=== PATIENT | female | born 1975 | race Caucasian/White ===

== ENCOUNTER → 2018-04-25 | Outpatient (CLI) | payer OTHER | END | disposition home or self-care (01) | LOC: PLD 08:12 → LAB SHORT 08:12 | DX: D22.39 Melanocytic nevi of other parts of face (principal) | CPT/HCPCS: 88305 ==

== ENCOUNTER → 2018-08-13 | Outpatient (CLI) | payer OTHER ==
[2018-08-15 15:09] LABS: HPV 16 Negative (Negative); HPV 18 Negative (Negative); HPV OTHER HR TYPES Negative (Negative)
== END | disposition home or self-care (01) ==
LOC: LAB SHORT 16:50 → LAB 16:50
PROVIDERS: Obstetrics & Gynecology
DX: Z01.419 Encounter for gynecological examination (general) (routine) without abnormal findings (principal)
CPT/HCPCS: 87624; G0123

== ENCOUNTER 2019-09-23 07:03 | Day surgery (SDC) | payer OTHER ==
--- NOTE | 2019-09-23 08:09 | NUR ---
0801- 5 MG IV METORPROLOL ADMINISTERED PER DR WILLIS.
--- NOTE | 2019-09-23 08:10 | NUR ---
PATIENT ON MONITOR FOR ADMINISTRATION, WITH GOOD RESULT HR 66.
--- NOTE | 2019-09-23 08:51 | NUR ---
WILL FAX A CANCELATION NOTFICATION TO JONNA JOHNSON'S OFFICE WITH EXPLANATION OF HR VARIANCE.
== END 2019-09-23 22:42 | disposition home or self-care (01) ==
LOC: ORD 07:03 → CT 07:03 → ORD 07:30 → CT 08:00 → ORD 22:42
DX: R07.9 Chest pain, unspecified (principal); R94.39 Abnormal result of other cardiovascular function study; I10 Essential (primary) hypertension; E11.9 Type 2 diabetes mellitus without complications; E78.5 Hyperlipidemia, unspecified; K21.9 Gastro-esophageal reflux disease without esophagitis; G47.33 Obstructive sleep apnea (adult) (pediatric); J45.909 Unspecified asthma, uncomplicated; F17.200 Nicotine dependence, unspecified, uncomplicated; E66.9 Obesity, unspecified; Z53.8 Procedure and treatment not carried out for other reasons; Z79.899 Other long term (current) drug therapy; Z79.4 Long term (current) use of insulin; Z68.41 Body mass index [BMI] 40.0-44.9, adult

== ENCOUNTER 2022-03-30 06:17 | Day surgery (SDC) | payer OTHER ==
[~2022-03-30] VITALS: Ht 160 cm; Wt 89.7 kg
[~2022-03-30 06:17] MED LIST: ALBU90OI; ATOR40TA PO; ESOM20 PO; GABA300 PO; INSULANI; LOSA50 PO; METO25ER PO; NITR.4SL SL
--- NOTE | 2022-03-30 07:12 | NUR ---
03/30/22 0712 JAUN SALAZAR PT READY FOR OR - ENGAGED IN PRE OP TEACHING. ALL QUESTIONS ASKED AND ANSWERED. AT BEDSIDE, IV TO L HAND. WAITING ON MD'S
== END 2022-03-30 09:08 | disposition home or self-care (01) ==
LOC: ORSCSDS 06:17
PROVIDERS: Obstetrics & Gynecology
PROC: 0UDB8ZX Extraction of Endometrium, Via Natural or Artificial Opening Endoscopic, Diagnostic (ICD-10-PCS; principal; 2022-03-30 07:30)
DX: N92.1 Excessive and frequent menstruation with irregular cycle (principal); N85.00 Endometrial hyperplasia, unspecified; N84.0 Polyp of corpus uteri; I10 Essential (primary) hypertension; Z87.891 Personal history of nicotine dependence; J45.909 Unspecified asthma, uncomplicated; Z86.16 Personal history of COVID-19; K21.9 Gastro-esophageal reflux disease without esophagitis; Z79.899 Other long term (current) drug therapy; E66.9 Obesity, unspecified; Z68.35 Body mass index [BMI] 35.0-35.9, adult
CPT/HCPCS: 82947; 88305; J0690; J1100; J1885; J2250; J2405; J2704; J3010

== ENCOUNTER 2022-10-25 12:23 | Emergency (ER) | payer OTHER ==
[~2022-10-25] VITALS: Ht 160 cm; Wt 86.6 kg
[2022-10-25 13:49] LABS: BASOPHILS ABSOLUTE AUTO 0.02 K/mm3 (0.00-0.23); BASOPHILS PERCENT AUTO 0 % (0-2); EOSINOPHILS ABSOLUTE AUTO 0.05 K/mm3 (0.00-0.68); EOSINOPHILS PERCENT AUTO 0 % (0-6); Hematocrit 43.2 % (33.0-51.0); Hemoglobin 14.4 g/dL (11.5-16.0); IMMATURE GRAN ABSOLUTE AUTO 0.04 K/mm3 (0.00-0.10); IMMATURE GRAN PERCENT AUTO 0 % (0-1); LYMPHOCYTES ABSOLUTE AUTO 1.16 K/mm3 (0.84-5.20); LYMPHOCYTES PERCENT AUTO 9 % (21-46); MONOCYTES ABSOLUTE AUTO 0.82 K/mm3 (0.16-1.47); MONOCYTES PERCENT AUTO 7 % (4-13); Mean Corpuscular HGB 28.2 pg (26.0-34.0); Mean Corpuscular HGB Conc 33.3 g/dL (31.5-36.5); Mean Corpuscular Volume 85 fL (80-100); Mean Platelet Volume 9.9 fL (9.1-12.4); NEUTROPHILS ABSOLUTE AUTO 10.54 K/mm3 (1.96-9.15); NEUTROPHILS PERCENT AUTO 83 % (41-73); Platelet Count 249 K/mm3 (150-400); RDW Coefficient Variation 13.9 % (11.7-14.2); RDW Standard Deviation 43.2 fL (35.1-46.3); White Blood Cell Count 12.63 K/mm3 (4.00-11.30)
[2022-10-25 14:13] LABS: Albumin, Blood 3.5 g/dL (3.4-5.0); Albumin/Globulin Ratio 0.9 (0.8-1.8); Bilirubin, Total 0.4 mg/dL (0.1-1.0); Bun/Creatinine Ratio 16.8 (12.0-20.0); Calcium, Blood 8.9 mg/dL (8.5-10.1); Creatinine, Blood 0.42 mg/dL (0.40-1.00); Globulin, Blood 3.9 g/dL (2.2-4.0); Potassium, Blood 4.1 mmol/L (3.5-5.5); Total Protein, Blood 7.4 g/dL (6.4-8.2)
[2022-10-25 16:56] LABS: Source, Urine Clean Catch
[2022-10-25 17:01] LABS: Appearance, Urine Clear (Clear); Bilirubin, Urine Neg (Neg); Blood, Urine Neg (Neg); Color, Urine Yellow (P-Yellow); Glucose Qualitative, Urine 1+ (Neg); Ketones, Urine Neg (Neg); Leukocyte Esterase, Urine Neg (Neg); Nitrite, Urine Neg (Neg); Protein, Urine Neg (Neg); Specific Gravity, Urine 1.015 (1.003-1.022); Urobilinogen, Urine NORM (Normal)
[2022-10-25] MEDS ORDERED: AMOCLA875 PO (19:27)
[2022-10-25] MEDS ORDERED: Percocet 5-3251 EACH PO (19:27)
[2022-10-25] MEDS ORDERED: DICY20 PO (19:27)
== END 2022-10-25 20:04 | disposition home or self-care (01) ==
LOC: ER 12:23
PROVIDERS: Student in an Organized Health Care Education/Training Program
DX: K57.32 Diverticulitis of large intestine without perforation or abscess without bleeding (principal); Z87.891 Personal history of nicotine dependence
CPT/HCPCS: 36415; 74177; 80053; 81003; 84703; 85025; A9270; J1170; J2405; Q9967

== ENCOUNTER 2022-11-23 09:10 | Day surgery (SDC) | payer OTHER ==
[2022-11-21 09:25] LABS: BASOPHILS ABSOLUTE AUTO 0.02 K/mm3 (0.00-0.23); BASOPHILS PERCENT AUTO 0 % (0-2); EOSINOPHILS PERCENT AUTO 2 % (0-6); Hematocrit 38.1 % (33.0-51.0); Hemoglobin 12.6 g/dL (11.5-16.0); IMMATURE GRAN ABSOLUTE AUTO 0.01 K/mm3 (0.00-0.10); IMMATURE GRAN PERCENT AUTO 0 % (0-1); LYMPHOCYTES ABSOLUTE AUTO 1.43 K/mm3 (0.84-5.20); LYMPHOCYTES PERCENT AUTO 26 % (21-46); MONOCYTES ABSOLUTE AUTO 0.41 K/mm3 (0.16-1.47); MONOCYTES PERCENT AUTO 7 % (4-13); Mean Corpuscular HGB 27.9 pg (26.0-34.0); Mean Corpuscular HGB Conc 33.1 g/dL (31.5-36.5); Mean Corpuscular Volume 85 fL (80-100); NEUTROPHILS ABSOLUTE AUTO 3.56 K/mm3 (1.96-9.15); NEUTROPHILS PERCENT AUTO 64 % (41-73); Platelet Count 228 K/mm3 (150-400); RDW Coefficient Variation 13.2 % (11.7-14.2); RDW Standard Deviation 40.7 fL (35.1-46.3); Red Blood Cell Count 4.51 M/mm3 (3.80-5.20); White Blood Cell Count 5.53 K/mm3 (4.00-11.30)
[2022-11-21 10:45] LABS: Anion Gap 10 mmol/L (6-16); Beta HCG, Quantitative, Serum <1 mIU/mL (0-3); Blood Urea Nitrogen 10 mg/dL (8-24); Bun/Creatinine Ratio 23.8 (12.0-20.0); CO2, Blood 21 mmol/L (21-32); Calcium, Blood 8.2 mg/dL (8.5-10.1); Chloride, Blood 105 mmol/L (98-108); Creatinine, Blood 0.42 mg/dL (0.40-1.00); Glomerular Filtration Rate 121 (60-); Glucose, Blood 325 mg/dL (70-99); Sodium, Blood 136 mmol/L (136-145)
[~2022-11-23] VITALS: Ht 160 cm; Wt 88.8 kg
[~2022-11-23 09:10] MED LIST changes: +AMOCLA875 PO; +DICY20 PO; +Percocet 5-3251 EACH PO
--- NOTE | 2022-11-23 10:20 | NUR ---
Ambulatory in Day Surgery. History, Chart, Medications and Allergies reviewed before start of procedure. Patient confirms NPO status and agrees with scheduled surgery. Pre-Op teaching done. Pt verbalizes understanding. Patient reports completing Chlorhexadine shower X2 prior to admission to hospital. Lungs clear T/O to Auscultation. Patient States Post-Procedure ride home has been arranged.
[2022-11-23] MEDS ORDERED: FLUC150A PO (10:50)
[2022-11-23] MEDS ORDERED: OXYCODONE-ACET1 EAC3 PO (10:50)
[2022-11-23] MEDS ORDERED: Phenergan25 M1 PO (10:51)
[2022-11-23] MEDS ORDERED: CYCL10 PO (10:51)
[2022-11-23] MEDS ORDERED: IBU800 M1 PO (10:51)
[2022-11-23] MEDS ORDERED: QVAR REDIHALE10.6 G2 IH (10:51)
--- NOTE | 2022-11-23 15:30 | NUR ---
PT ARRIVED TO THE ROOM AT APPROXIMATELY 1510. PT DROWSY BUT ORIENTED. HER IS AT THE BEDSIDE. PT REPORTS PAIN BUT IMMEDIATELY FALLS BACK TO SLEEP. PT COMPLAINT OF DISCOMFORT FROM CATHETER. VSS, BUT O2 SATURATION DECREASES WHEN PT SLEEPS, PLACED ON 2L O2 WHILE ASLEEP. SCANT BLEEDING.
--- NOTE | 2022-11-23 18:40 | NUR ---
SHIFT SUMMARY PT IS POD#0 FROM [facility] WITH DR. ARRIAGA. PT HAS AMBULATED TO THE BR X2 AND BEEN ABLE TO VOID. PAIN MANAGED WITH PO PAIN MEDICATION. PT IS HAVING SCANT TO LIGHT VAGINAL BLEEDING. PT'S BLOOD GLUCOSE WAS ELEVATED THIS EVENING, WAITING FOR DR. ARRIAGA TO RETURN CALL REGARDING THIS CONCERN, PT DENIES TAKING ANY DIABETIC MEDICATIONS AT HOME. WILL CONTINUE TO MONITOR.
--- NOTE | 2022-11-23 18:50 | NUR ---
ELEVATED CBG CALL PLACED TO DR. ARRIAGA, PHONE WENT TO [facility]. CALLED ANSWERING SERVICE TO CONTACT DR. ARRIAGA.
--- NOTE | 2022-11-23 19:56 | NUR ---
WONDERLY NOTIFIED OF ELEVATED BLOOD GLUCOSE WITH DINNER. HE ORDERED AC/HS BLOOD SUGARS AND HUMALOG LOW SLIDING SCALE. HE WAS ALSO NOTIFIED OF PETECHIAL RASH TO PT'S R HAND THAT IS UNCHANGED SINCE SHE ARRIVED TO THE FLOOR FROM PACU.
[2022-11-24 05:11] LABS: BASOPHILS ABSOLUTE AUTO 0.01 K/mm3 (0.00-0.23); BASOPHILS PERCENT AUTO 0 % (0-2); EOSINOPHILS PERCENT AUTO 0 % (0-6); Hematocrit 36.1 % (33.0-51.0); Hemoglobin 12.3 g/dL (11.5-16.0); IMMATURE GRAN ABSOLUTE AUTO 0.06 K/mm3 (0.00-0.10); IMMATURE GRAN PERCENT AUTO 1 % (0-1); LYMPHOCYTES ABSOLUTE AUTO 0.83 K/mm3 (0.84-5.20); LYMPHOCYTES PERCENT AUTO 7 % (21-46); MONOCYTES ABSOLUTE AUTO 0.58 K/mm3 (0.16-1.47); MONOCYTES PERCENT AUTO 5 % (4-13); Mean Corpuscular HGB 28.5 pg (26.0-34.0); Mean Corpuscular HGB Conc 34.1 g/dL (31.5-36.5); Mean Corpuscular Volume 84 fL (80-100); NEUTROPHILS ABSOLUTE AUTO 11.35 K/mm3 (1.96-9.15); NEUTROPHILS PERCENT AUTO 88 % (41-73); Platelet Count 274 K/mm3 (150-400); RDW Coefficient Variation 13.2 % (11.7-14.2); RDW Standard Deviation 40.9 fL (35.1-46.3); Red Blood Cell Count 4.31 M/mm3 (3.80-5.20); White Blood Cell Count 12.83 K/mm3 (4.00-11.30)
--- NOTE | 2022-11-24 05:28 | NUR ---
SHIFT SUMMARY: A&0x4. WALKING FREQUENTLY. IND IN ROOM TO BR. REPORTED ONLY LIGHT VAGINAL BLEEDING. PAIN WELL MANAGED WITH PERCOCET. TOLERATING PO FLUIDS AND SNACKING ON JELLO. X4 LAP SITES REMAIN CLOSED WITH SKIN GLUE. VSS T/O THE SHIFT. PLANS TO DC HOME TODAY. PT RESTING WITH CALL LIGHT IN REACH. WILL GIVE REPORT TO DAY TIME RN.
[2022-11-24 05:40] LABS: Glucose, Blood 246 mg/dL (70-99)
[2022-11-24] MEDS ORDERED: FLUC150A PO (10:32)
[2022-11-24] MEDS ORDERED: IBUP400 PO (10:33)
[2022-11-24] MEDS ORDERED: PROM25 PO (10:34)
[2022-11-24] MEDS ORDERED: ESTR2 PO (10:35)
[2022-11-24] MEDS ORDERED: SIME80CH PO (10:35)
--- NOTE | 2022-11-24 10:41 | NUR ---
Patient is sitting on EOB and alert. She tells me about her surgery and how her recovery is going so far. Pt then talks about her family unit complications, the recent of her mother and the guilt she feels for putting her grandmother in a memory care facility. We also explore pt's spiritual beliefs and pt reveals her strong Evangelical kenny and how she leans into God in challenging times. I normalize her feelings, and provide therapeutic listening, grief support, gentle drug and alcohol counselor and prayer. Pt responds well and shows signs of catharsis, being comforted and having increased peace. Pt voices appreciation for the visit.
--- NOTE | 2022-11-24 10:58 | NUR ---
1045 DISCHARGED TO HOME WITH . PT REPORTS PAIN IS WELL CONTROLLED, NO VAGINAL DRAINAGE KIARRA PO FOOD AND FLUIDS WITHOUT NAUSEA, VOIDING CLEAR YELLOW URINE. PT IN AGREEMENT WITH PLANS TO DISCHARGE HOME.
== END 2022-11-24 10:52 | disposition home or self-care (01) ==
LOC: ORSCMMR 09:10 → ORD 13:00 → ORSCMMR 13:00 → SURS 15:37 → ORSCMMR 11-24 10:52
PROVIDERS: Obstetrics & Gynecology
PROC: 0UT24ZZ Resection of Bilateral Ovaries, Percutaneous Endoscopic Approach (ICD-10-PCS; principal; 2022-11-23 11:00)
PROC: 8E0W4CZ Robotic Assisted Procedure of Trunk Region, Percutaneous Endoscopic Approach (ICD-10-PCS; principal; 2022-11-23 11:00)
PROC: 0U5F4ZZ Destruction of Cul-de-sac, Percutaneous Endoscopic Approach (ICD-10-PCS; principal; 2022-11-23 11:00)
PROC: 0UT94ZZ Resection of Uterus, Percutaneous Endoscopic Approach (ICD-10-PCS; principal; 2022-11-23 11:00)
PROC: 0UT74ZZ Resection of Bilateral Fallopian Tubes, Percutaneous Endoscopic Approach (ICD-10-PCS; principal; 2022-11-23 11:00)
DX: N92.1 Excessive and frequent menstruation with irregular cycle (principal); N94.6 Dysmenorrhea, unspecified; R10.2 Pelvic and perineal pain; D50.0 Iron deficiency anemia secondary to blood loss (chronic); Q50.5 Embryonic cyst of broad ligament; D25.9 Leiomyoma of uterus, unspecified; I10 Essential (primary) hypertension; E11.40 Type 2 diabetes mellitus with diabetic neuropathy, unspecified; G47.33 Obstructive sleep apnea (adult) (pediatric); J45.909 Unspecified asthma, uncomplicated; F17.210 Nicotine dependence, cigarettes, uncomplicated; Z79.899 Other long term (current) drug therapy; K21.9 Gastro-esophageal reflux disease without esophagitis; E66.9 Obesity, unspecified; Z68.34 Body mass index [BMI] 34.0-34.9, adult
CPT/HCPCS: 58571; 58662; S2900; 36415; 80048; 82947; 84702; 85025; 86850; 86900; 86901; 88305; 88307; 94760; A9270; J0690; J1100; J1885; J2060; J2250; J2405; J2704; J3010; J7120

== ENCOUNTER → 2023-10-23 | Outpatient (CLI) | payer OTHER ==
[~2023-10-23] MED LIST changes: +CYCL10 PO; +ESTR2 PO; +FLUC150A PO; +IBU800 M1 PO; +IBUP400 PO; +OXYCODONE-ACET1 EAC3 PO; +PROM25 PO; +Phenergan25 M1 PO; +QVAR REDIHALE10.6 G2 IH; +SIME80CH PO
== END | disposition home or self-care (01) ==
LOC: LAB 18:12 → LAB SHORT 18:12
DX: L02.219 Cutaneous abscess of trunk, unspecified (principal)
CPT/HCPCS: 87070; 87075; 87077; 87147; 87186; 87205

== ENCOUNTER 2023-12-30 09:27 | Emergency (ER) | payer OTHER ==
[~2023-12-30] VITALS: Ht 160 cm; Wt 93.4 kg
[2023-12-30 10:43] LABS: BASOPHILS ABSOLUTE AUTO 0.01 K/mm3 (0.00-0.23); BASOPHILS PERCENT AUTO 0 % (0-2); EOSINOPHILS ABSOLUTE AUTO 0.01 K/mm3 (0.00-0.68); EOSINOPHILS PERCENT AUTO 0 % (0-6); Hematocrit 40.9 % (33.0-51.0); Hemoglobin 13.6 g/dL (11.5-16.0); IMMATURE GRAN ABSOLUTE AUTO 0.01 K/mm3 (0.00-0.10); IMMATURE GRAN PERCENT AUTO 0 % (0-1); LYMPHOCYTES ABSOLUTE AUTO 1.06 K/mm3 (0.84-5.20); LYMPHOCYTES PERCENT AUTO 25 % (21-46); MONOCYTES ABSOLUTE AUTO 0.47 K/mm3 (0.16-1.47); MONOCYTES PERCENT AUTO 11 % (4-13); Mean Corpuscular HGB 28.6 pg (26.0-34.0); Mean Corpuscular HGB Conc 33.3 g/dL (31.5-36.5); Mean Corpuscular Volume 86 fL (80-100); Mean Platelet Volume 9.1 fL (9.1-12.4); NEUTROPHILS PERCENT AUTO 64 % (41-73); Platelet Count 205 K/mm3 (150-400); RDW Coefficient Variation 13.4 % (11.7-14.2); RDW Standard Deviation 42.3 fL (35.1-46.3); Red Blood Cell Count 4.76 M/mm3 (3.80-5.20); White Blood Cell Count 4.26 K/mm3 (4.00-11.30)
[2023-12-30 11:03] LABS: Influenza A, PCR NEGATIVE (NEGATIVE); Influenza B, PCR NEGATIVE (NEGATIVE); Resp Syncytial Virus, PCR NEGATIVE (NEGATIVE); SARS-Cov-2 (COVID-19) PCR, MMC NEGATIVE (NEGATIVE)
[2023-12-30 11:13] LABS: Albumin, Blood 3.2 g/dL (3.4-5.0); Albumin/Globulin Ratio 0.8 (0.8-1.8); Bilirubin, Total 0.3 mg/dL (0.1-1.0); Bun/Creatinine Ratio 15.8 (12.0-20.0); Calcium, Blood 8.5 mg/dL (8.5-10.1); Creatinine, Blood 0.44 mg/dL (0.40-1.00); Globulin, Blood 4.1 g/dL (2.2-4.0); Potassium, Blood 4.2 mmol/L (3.5-5.5); Total Protein, Blood 7.3 g/dL (6.4-8.2)
[2023-12-30 11:38] VITALS: BP 145/67
[2023-12-30] MEDS ORDERED: CEFP200 PO (12:13)
[2023-12-30] MEDS ORDERED: AZIT500 PO (12:13)
== END 2023-12-30 13:57 | disposition home or self-care (01) ==
LOC: ER 09:27
PROVIDERS: Student in an Organized Health Care Education/Training Program
DX: J18.9 Pneumonia, unspecified organism (principal); Z87.891 Personal history of nicotine dependence; E11.9 Type 2 diabetes mellitus without complications; J43.9 Emphysema, unspecified; Z87.09 Personal history of other diseases of the respiratory system; Z79.2 Long term (current) use of antibiotics; Z79.899 Other long term (current) drug therapy
CPT/HCPCS: 0241U; 71046; 80053; 85025; 99285-25